=== PATIENT | male | born 1985 | race Caucasian/White ===

== ENCOUNTER 2025-11-09 21:29 | Inpatient (IN) | payer OTHER, SELFPAY ==
[2025-11-09] VITALS (8 sets, daily range): BP systolic 139–187; BP diastolic 80–85; PULSE 56–65; RESP 14–21; TEMP 36.7; O2SAT 97–100; BMI 29.9
--- NOTE | 2025-11-09 22:01 | ED_ITS ---
HPI - Nausea/Vomiting/Diarrhea <Siva Kevin MD - Last Filed: 11/12/25 15:49> General Chief complaint: Nausea/Vomiting/Diarrhea Stated complaint: N, chills, unable to drink Time Seen by Provider: 11/09/25 21:40 Source: patient and family Mode of arrival: Ambulatory History of Present Illness HPI Narrative: 40-year-old male patient with a history of beta thalassemia minor who was recently hospitalized in [place] on the 31 of October for bowel obstruction/intussusception/mass which required a bowel resection near the jejunum. 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 Since then he was recovering at home but developed nausea and no energy since the middle of the night last night. He started vomiting at around 6:00 p.m.. No diarrhea. He has had chills and felt warm but no documented fever. Has a feeling of fullness in his abdomen but no significant pain otherwise. Generalized weakness. Related Data Allergies Allergy/AdvReac Type Severity Reaction Status Date / Time No Known Drug Allergies Allergy Verified 11/09/25 21:52 Review of Systems <Siva Kevin MD - Last Filed: 11/12/25 15:49> Review of Systems ROS Unobtainable: All systems reviewed & are unremarkable except as noted in HPI and below Constitutional Constitutional: Reports as per HPI Gastrointestinal Gastrointestinal: Reports as per HPI Patient History <Siva Kevin MD - Last Filed: 11/12/25 15:49> Social History household members: spouse Smoking Status: Current some day smoker Smoking Status: Current some day smoker Exam <Siva Kevin MD - Last Filed: 11/12/25 15:49> Narrative Exam Narrative: General: Lethargic but able to answer questions appropriately and oriented.. Mild distress. Appears well nourished and well hydrated. Appears a little pale. Craniofacial: No evidence of trauma. Nontender and no swelling. Lungs: Clear to auscultation with good air movement. No wheezing, rales or rhonchi. No respiratory distress Cardiac: Regular rate and rhythm with no appreciable murmur or gallop Abdomen: Soft, nontender with mild fullness but no masses. Normal bowel sounds. No rebound or guarding Musculoskeletal: Exam of the extremities, axial spine and ribcage reveals no deformity, bony tenderness or swelling. Range of motion intact Neuro: Alert and oriented. Cranial nerves, motor, sensory and cerebellar all grossly intact. No focal deficit Skin: Warm and normal color. No rashes Psychological: Normal affect and interaction. No evidence of delusion or psychosis. Normal mood. Initial Vital Signs Initial Vital Signs: Vital Signs Pulse Rate 64 11/09/25 21:50 Pulse Oximetry 100 11/09/25 21:50 <Uriel Greenberg DO - Last Filed: 11/10/25 01:16> Initial Vital Signs Initial Vital Signs: Vital Signs Pulse Rate 64 11/09/25 21:50 Pulse Oximetry 100 11/09/25 21:50 Course <Siva Kevin MD - Last Filed: 11/12/25 15:49> Orders Ordered: Acetaminophen (Acetaminophen 325 Mg Tablet) 650 mg PO Q6H PRN PRN Reason: Pain, Mild (1-3) Last Admin: 11/12/25 02:19 Dose: 650 mg Documented By: ALEJANDRO Diazepam (Diazepam 10 Mg/2 Ml Syringe) 2 mg IV Q4HR PRN PRN Reason: Anxiety Last Admin: 11/12/25 14:26 Dose: 2 mg Documented By: NIKKI Hydromorphone HCl (Hydromorphone Hcl 0.5 Mg/0.5 Ml Syringe) 2 mg IV Q2H PRN PRN Reason: Pain, Severe (7-10) Hydromorphone HCl (Hydromorphone 1 Mg/Ml Syringe) 1 mg IV Q3H PRN PRN Reason: Pain, Moderate (4-6) Hydromorphone HCl (Hydromorphone Hcl 0.5 Mg/0.5 Ml Syringe) 0.5 mg IV Q2H PRN PRN Reason: Pain, Severe (7-10) Lactated Ringer's (Lactated Ringers) 1,000 mls @ 100 mls/hr IV CONT [facility] Last Admin: 11/12/25 14:26 Dose: 100 mls/hr Documented By: NIKKI Naloxone HCl (Naloxone 0.4 Mg/Ml Vial) 0.2 mg IV Q2MIN PRN PRN Reason: Opiate Reversal Ondansetron HCl (Ondansetron 4 Mg/2 Ml Inj) 4 mg IV Q6H [facility] Last Admin: 11/12/25 12:23 Dose: Not Given Documented By: Admin: 11/12/25 06:57 Dose: 4 mg Documented By: Admin: 11/11/25 22:39 Dose: Not Given Documented By: Admin: 11/11/25 16:45 Dose: 4 mg Documented By: Admin: 11/11/25 10:33 Dose: 4 mg Documented By: Admin: 11/11/25 04:57 Dose: Not Given Documented By: Admin: 11/10/25 22:31 Dose: Not Given Documented By: Admin: 11/10/25 16:10 Dose: 4 mg Documented By: CHARO Scopolamine (Scopolamine 1 Patch) 1 patch TOP Q72H [facility] Last Admin: 11/10/25 11:33 Dose: 1 patch Documented By: CHARO Discontinued Medications Hydromorphone HCl (Hydromorphone Hcl 0.5 Mg/0.5 Ml Syringe) 0.5 mg IV Q2H PRN PRN Reason: Pain, Severe (7-10) Sodium Chloride (Normal Saline 0.9%) 1,000 mls @ 1,000 mls/hr IV BOLUS ONE Stop: 11/09/25 23:09 Last Infusion: 11/09/25 23:35 Dose: Infused Documented By: Admin: 11/09/25 22:22 Dose: 1,000 mls/hr Documented By: OTTO Sodium Chloride (Normal Saline 0.9%) 1,000 mls @ 1,000 mls/hr IV BOLUS ONE Stop: 11/10/25 00:06 Last Infusion: 11/10/25 01:20 Dose: Infused Documented By: Admin: 11/09/25 23:43 Dose: 1,000 mls/hr Documented By: OTTO Sodium Chloride (Normal Saline 0.9%) 1,000 mls @ 125 mls/hr IV CONT [place] Last Infusion: 11/10/25 22:33 Dose: Infused Documented By: Infusion: 11/10/25 22:31 Dose: 125 mls/hr Documented By: Infusion: 11/10/25 13:21 Dose: 0 mls/hr Documented By: Admin: 11/10/25 06:18 Dose: 125 mls/hr Documented By: GLADYS Potassium Chloride 20 meq/ (Dextrose/Sodium Chloride) 1,010 mls @ 100 mls/hr IV CONT [place] Last Admin: 11/10/25 11:56 Dose: Not Given Documented By: CHARO Potassium Chloride/Dextrose/Sod Cl (Dextrose 5%-0.45%Ns W/Kcl 20meq) 1,000 mls @ 100 mls/hr IV CONT [place] Last Infusion: 11/12/25 08:17 Dose: Infused Documented By: Admin: 11/12/25 02:20 Dose: 100 mls/hr Documented By: Infusion: 11/12/25 02:20 Dose: Infused Documented By: Admin: 11/11/25 16:45 Dose: 100 mls/hr Documented By: Infusion: 11/11/25 16:45 Dose: Infused Documented By: Admin: 11/11/25 06:55 Dose: 100 mls/hr Documented By: Infusion: 11/11/25 06:55 Dose: Infused Documented By: Admin: 11/10/25 21:39 Dose: 100 mls/hr Documented By: Infusion: 11/10/25 21:39 Dose: Infused Documented By: Admin: 11/10/25 12:28 Dose: 100 mls/hr Documented By: CHARO Metoclopramide HCl (Metoclopramide 10 Mg/2 Ml Inj) 5 mg IV NOW ONE Stop: 11/09/25 23:16 Last Admin: 11/09/25 23:37 Dose: 5 mg Documented By: OTTO Morphine Sulfate (Morphine 2 Mg/Ml Inj) 2 mg IV Q4HR PRN PRN Reason: Pain, Moderate (4-6) Ondansetron HCl (Ondansetron 4 Mg/2 Ml Inj) 4 mg IV NOW ONE Stop: 11/09/25 22:11 Last Admin: 11/09/25 22:22 Dose: 4 mg Documented By: OTTO Ondansetron HCl (Ondansetron 4 Mg/2 Ml Inj) 4 mg IV NOW ONE Stop: 11/09/25 23:08 Last Admin: 11/09/25 23:41 Dose: Not Given Documented By: OTTO Ondansetron HCl (Ondansetron 4 Mg/2 Ml Inj) 4 mg IV Q4HR PRN PRN Reason: Nausea And Vomiting Last Admin: 11/10/25 10:30 Dose: 4 mg Documented By: Admin: 11/10/25 06:18 Dose: 4 mg Documented By: GLADYS Ondansetron HCl (Ondansetron 4 Mg/2 Ml Inj) 4 mg IV Q6HR [facility] Last Admin: 11/10/25 16:38 Dose: Not Given Documented By: CHARO Vital Signs Vital signs: Vital Signs - 8 hr 11/09/25 21:50 11/09/25 21:52 11/09/25 22:00 Temperature 98.0 F Pulse Rate 64 65 59 L Respiratory Rate 14 Blood Pressure 146/85 H Pulse Oximetry 100 100 99 Oxygen Delivery Method Room Air 11/09/25 22:30 11/09/25 22:36 11/09/25 22:36 Temperature Pulse Rate 56 L 61 Respiratory Rate 21 Blood Pressure 139/83 Pulse Oximetry 97 98 Oxygen Delivery Method Room Air <Uriel Greenberg DO - Last Filed: 11/10/25 01:16> Orders Ordered: Acetaminophen (Acetaminophen 325 Mg Tablet) 650 mg PO Q6H PRN PRN Reason: Pain, Mild (1-3) Last Admin: 11/12/25 02:19 Dose: 650 mg Documented By: ALEJANDRO Diazepam (Diazepam 10 Mg/2 Ml Syringe) 2 mg IV Q4HR PRN PRN Reason: Anxiety Last Admin: 11/12/25 14:26 Dose: 2 mg Documented By: NIKKI Hydromorphone HCl (Hydromorphone Hcl 0.5 Mg/0.5 Ml Syringe) 2 mg IV Q2H PRN PRN Reason: Pain, Severe (7-10) Hydromorphone HCl (Hydromorphone 1 Mg/Ml Syringe) 1 mg IV Q3H PRN PRN Reason: Pain, Moderate (4-6) Hydromorphone HCl (Hydromorphone Hcl 0.5 Mg/0.5 Ml Syringe) 0.5 mg IV Q2H PRN PRN Reason: Pain, Severe (7-10) Lactated Ringer's (Lactated Ringers) 1,000 mls @ 100 mls/hr IV CONT [facility] Last Admin: 11/12/25 14:26 Dose: 100 mls/hr Documented By: NIKKI Naloxone HCl (Naloxone 0.4 Mg/Ml Vial) 0.2 mg IV Q2MIN PRN PRN Reason: Opiate Reversal Ondansetron HCl (Ondansetron 4 Mg/2 Ml Inj) 4 mg IV Q6H [facility] Last Admin: 11/12/25 12:23 Dose: Not Given Documented By: Admin: 11/12/25 06:57 Dose: 4 mg Documented By: Admin: 11/11/25 22:39 Dose: Not Given Documented By: Admin: 11/11/25 16:45 Dose: 4 mg Documented By: Admin: 11/11/25 10:33 Dose: 4 mg Documented By: Admin: 11/11/25 04:57 Dose: Not Given Documented By: Admin: 11/10/25 22:31 Dose: Not Given Documented By: Admin: 11/10/25 16:10 Dose: 4 mg Documented By: CHARO Scopolamine (Scopolamine 1 Patch) 1 patch TOP Q72H [facility] Last Admin: 11/10/25 11:33 Dose: 1 patch Documented By: CHARO Discontinued Medications Hydromorphone HCl (Hydromorphone Hcl 0.5 Mg/0.5 Ml Syringe) 0.5 mg IV Q2H PRN PRN Reason: Pain, Severe (7-10) Sodium Chloride (Normal Saline 0.9%) 1,000 mls @ 1,000 mls/hr IV BOLUS ONE Stop: 11/09/25 23:09 Last Infusion: 11/09/25 23:35 Dose: Infused Documented By: Admin: 11/09/25 22:22 Dose: 1,000 mls/hr Documented By: OTTO Sodium Chloride (Normal Saline 0.9%) 1,000 mls @ 1,000 mls/hr IV BOLUS ONE Stop: 11/10/25 00:06 Last Infusion: 11/10/25 01:20 Dose: Infused Documented By: Admin: 11/09/25 23:43 Dose: 1,000 mls/hr Documented By: OTTO Sodium Chloride (Normal Saline 0.9%) 1,000 mls @ 125 mls/hr IV CONT [place] Last Infusion: 11/10/25 22:33 Dose: Infused Documented By: Infusion: 11/10/25 22:31 Dose: 125 mls/hr Documented By: Infusion: 11/10/25 13:21 Dose: 0 mls/hr Documented By: Admin: 11/10/25 06:18 Dose: 125 mls/hr Documented By: GLADYS Potassium Chloride 20 meq/ (Dextrose/Sodium Chloride) 1,010 mls @ 100 mls/hr IV CONT [place] Last Admin: 11/10/25 11:56 Dose: Not Given Documented By: CHARO Potassium Chloride/Dextrose/Sod Cl (Dextrose 5%-0.45%Ns W/Kcl 20meq) 1,000 mls @ 100 mls/hr IV CONT [place] Last Infusion: 11/12/25 08:17 Dose: Infused Documented By: Admin: 11/12/25 02:20 Dose: 100 mls/hr Documented By: Infusion: 11/12/25 02:20 Dose: Infused Documented By: Admin: 11/11/25 16:45 Dose: 100 mls/hr Documented By: Infusion: 11/11/25 16:45 Dose: Infused Documented By: Admin: 11/11/25 06:55 Dose: 100 mls/hr Documented By: Infusion: 11/11/25 06:55 Dose: Infused Documented By: Admin: 11/10/25 21:39 Dose: 100 mls/hr Documented By: Infusion: 11/10/25 21:39 Dose: Infused Documented By: Admin: 11/10/25 12:28 Dose: 100 mls/hr Documented By: CHARO Metoclopramide HCl (Metoclopramide 10 Mg/2 Ml Inj) 5 mg IV NOW ONE Stop: 11/09/25 23:16 Last Admin: 11/09/25 23:37 Dose: 5 mg Documented By: OTTO Morphine Sulfate (Morphine 2 Mg/Ml Inj) 2 mg IV Q4HR PRN PRN Reason: Pain, Moderate (4-6) Ondansetron HCl (Ondansetron 4 Mg/2 Ml Inj) 4 mg IV NOW ONE Stop: 11/09/25 22:11 Last Admin: 11/09/25 22:22 Dose: 4 mg Documented By: OTTO Ondansetron HCl (Ondansetron 4 Mg/2 Ml Inj) 4 mg IV NOW ONE Stop: 11/09/25 23:08 Last Admin: 11/09/25 23:41 Dose: Not Given Documented By: OTTO Ondansetron HCl (Ondansetron 4 Mg/2 Ml Inj) 4 mg IV Q4HR PRN PRN Reason: Nausea And Vomiting Last Admin: 11/10/25 10:30 Dose: 4 mg Documented By: Admin: 11/10/25 06:18 Dose: 4 mg Documented By: GLADYS Ondansetron HCl (Ondansetron 4 Mg/2 Ml Inj) 4 mg IV Q6HR [facility] Last Admin: 11/10/25 16:38 Dose: Not Given Documented By: CHARO Vital Signs Vital signs: Vital Signs - 8 hr 11/09/25 21:50 11/09/25 21:52 11/09/25 22:00 Temperature 98.0 F Pulse Rate 64 65 59 L Respiratory Rate 14 Blood Pressure 146/85 H Pulse Oximetry 100 100 99 Oxygen Delivery Method Room Air 11/09/25 22:30 11/09/25 22:36 11/09/25 22:36 Temperature Pulse Rate 56 L 61 Respiratory Rate 21 Blood Pressure 139/83 Pulse Oximetry 97 98 Oxygen Delivery Method Room Air MDM - Nausea/Vomiting/Diarrhea <Siva Kevin MD - Last Filed: 11/12/25 15:49> Lab Data 11/12/25 14:42 11/12/25 14:42 Labs: Lab Results 11/09/25 Range/Units 21:55 WBC 9.8 (4.5-11.0) X10^3/uL RBC 6.44 H (4.5-5.9) X10^6/uL Hgb 13.0 L (13.5-17.5) g/dL Hct 40.8 L (41-53) % MCV 63.4 L (80-100) fL MCH 20.2 L (26-34) PG MCHC 31.9 (30-36) % RDW 16.3 H (11.6-14.8) % Plt Count 286 (150-400) X10^3/uL Neut % (Auto) Not Reportable Lymph % (Auto) Not Reportable [place] % (Auto) Not Reportable Eos % (Auto) Not Reportable Baso % (Auto) Not Reportable Lymph # (Auto) Not Reportable [place] # (Auto) Not Reportable Baso # (Auto) Not Reportable Total Counted 100 Seg Neutrophils % 63.0 (38-70) % Lymphocytes % (Manual) 28.0 (25-45) % Monocytes % (Manual) 8.0 (2-11) % Basophils % (Manual) 1.0 (0-1) % Neutrophils # (Manual) 6174 H (5323-1228) /uL Platelet Estimate Adequate on smear RBC Morphology See below Poikilocytosis 1+ H Microcytosis 1+ H Macrocytosis 1+ H Sodium 139 (137-145) mmol/L Potassium 3.9 (3.4-5.1) mmol/L Chloride 102 (98-107) mmol/L Carbon Dioxide 20 L (22-32) mmol/L BUN 17 (9-20) mg/dL Creatinine 1.12 (0.66-1.25) mg/dL Estimated GFR > 60 (>60) mL/min BUN/Creatinine Ratio 15.2 (6-22) Glucose 131 H (70-99) mg/dL Lactate 1.7 (0.7-2.1) mmol/L Calcium 10.6 H (8.4-10.2) mg/dL Magnesium 1.9 (1.6-2.3) mg/dL Total Bilirubin 1.6 H (0.2-1.3) mg/dL AST 35 (17-59) IU/L ALT 44 (<50) IU/L Alkaline Phosphatase 84 (38-126) U/L Total Protein 8.6 H (6.3-8.2) g/dL Albumin 5.2 H (3.5-5.0) g/dL Globulin 3.4 (1.7-4.1) g/dL Albumin/Globulin Ratio 1.5 (1.0-2.8) Lipase 130 (23-300) U/L Urine RBC 1-5/hpf (0-5/HPF) Urine WBC 1-5/hpf (0-5/HPF) Ur Squamous Epith Cells 1-5 /hpf (0-5/HPF) Amorphous Sediment 2+ Urine Bacteria Few (2-10) H (None) Ur Culture Indicated? Cult not indicated Vol Urine Centrifuged 10ml (spun) Urine Dip Bedside Urine Glucose Negative Bedside Urine Bilirubin - Negative Bedside Urine Ketone + 15 Urine Specific [place] 1.010 Bedside Urine Occult Blood - Negative Bedside Urine pH 8.0 Bedside Urine Protein +/- 15 Bedside Urine Urobilinogen - Negative Bedside Urine Nitrite - Negative Bedside Urine Leukocytes - Negative Esterase MDM Narrative Medical decision making narrative: 23:00 Patient care signed out to Dr. Cota at the change of shift with lab work pending. He is here with abdominal fullness, nausea and vomiting 1 week after laparotomy for benign intestinal mass. 2300: Patient was signed out to me by Dr. Kevin, patient is a 40-year-old male with recent abdominal surgery, states he had a colon resection on 10/31/2025 at [facility] in [facility], states that this was secondary to an intussusception that was caused by mass, he states that he has sentences transition to a normal diet, states that he did go to work today, had a normal bowel movement has been having flatulence, however he states that he just feels ?distended and nauseous, he denies any true abdominal pain, he states that he has been managing his abdominal pain postoperatively with Motrin and Tylenol has not taken or used any opiates. <Uriel Greenberg, DO - Last Filed: 11/10/25 01:16> Lab Data Labs: Lab Results 11/09/25 Range/Units 21:55 WBC 9.8 (4.5-11.0) X10^3/uL RBC 6.44 H (4.5-5.9) X10^6/uL Hgb 13.0 L (13.5-17.5) g/dL Hct 40.8 L (41-53) % MCV 63.4 L (80-100) fL MCH 20.2 L (26-34) PG MCHC 31.9 (30-36) % RDW 16.3 H (11.6-14.8) % Plt Count 286 (150-400) X10^3/uL Neut % (Auto) Not Reportable Lymph % (Auto) Not Reportable [place] % (Auto) Not Reportable Eos % (Auto) Not Reportable Baso % (Auto) Not Reportable Lymph # (Auto) Not Reportable [place] # (Auto) Not Reportable Baso # (Auto) Not Reportable Total Counted 100 Seg Neutrophils % 63.0 (38-70) % Lymphocytes % (Manual) 28.0 (25-45) % Monocytes % (Manual) 8.0 (2-11) % Basophils % (Manual) 1.0 (0-1) % Neutrophils # (Manual) 6174 H (5762-0444) /uL Platelet Estimate Adequate on smear RBC Morphology See below Poikilocytosis 1+ H Microcytosis 1+ H Macrocytosis 1+ H Sodium 139 (137-145) mmol/L Potassium 3.9 (3.4-5.1) mmol/L Chloride 102 (98-107) mmol/L Carbon Dioxide 20 L (22-32) mmol/L BUN 17 (9-20) mg/dL Creatinine 1.12 (0.66-1.25) mg/dL Estimated GFR > 60 (>60) mL/min BUN/Creatinine Ratio 15.2 (6-22) Glucose 131 H (70-99) mg/dL Lactate 1.7 (0.7-2.1) mmol/L Calcium 10.6 H (8.4-10.2) mg/dL Magnesium 1.9 (1.6-2.3) mg/dL Total Bilirubin 1.6 H (0.2-1.3) mg/dL AST 35 (17-59) IU/L ALT 44 (<50) IU/L Alkaline Phosphatase 84 (38-126) U/L Total Protein 8.6 H (6.3-8.2) g/dL Albumin 5.2 H (3.5-5.0) g/dL Globulin 3.4 (1.7-4.1) g/dL Albumin/Globulin Ratio 1.5 (1.0-2.8) Lipase 130 (23-300) U/L Urine RBC 1-5/hpf (0-5/HPF) Urine WBC 1-5/hpf (0-5/HPF) Ur Squamous Epith Cells 1-5 /hpf (0-5/HPF) Amorphous Sediment 2+ Urine Bacteria Few (2-10) H (None) Ur Culture Indicated? Cult not indicated Vol Urine Centrifuged 10ml (spun) Urine Dip Bedside Urine Glucose Negative Bedside Urine Bilirubin - Negative Bedside Urine Ketone + 15 Urine Specific [place] 1.010 Bedside Urine Occult Blood - Negative Bedside Urine pH 8.0 Bedside Urine Protein +/- 15 Bedside Urine Urobilinogen - Negative Bedside Urine Nitrite - Negative Bedside Urine Leukocytes - Negative Esterase MDM Narrative Medical decision making narrative: 23:00 Patient care signed out to Dr. Cota at the change of shift with lab work pending. He is here with abdominal fullness, nausea and vomiting 1 week after laparotomy for benign intestinal mass. 2300: Patient was signed out to me by Dr. Kevin, patient is a 40-year-old male with recent abdominal surgery, states he had a colon resection on 10/31/2025 at [facility] in [facility], states that this was secondary to an intussusception that was caused by mass, he states that he has sentences transition to a normal diet, states that he did go to work today, had a normal bowel movement has been having flatulence, however he states that he just feels ?distended and nauseous, he denies any true abdominal pain, he states that he has been managing his abdominal pain postoperatively with Motrin and Tylenol has not taken or used any opiates. 2345: I was informed by nursing staff that patient was unable to tolerate p.o. contrast, we did attempt to give him anti nausea meds prior but after drinking a small amount of the p.o. contrast had episode of nonbilious nonbloody emesis. Therefore we will proceed with CT scan with IV contrast without p.o. at this point. Lab work otherwise has been unremarkable no leukocytosis lactate normal Chem panel normal. Urinalysis without signs of acute urinary tract infection, there was few bacteria but there was went to 5 squamous epithelial cells therefore most likely contaminant, patient also not having any urinary symptoms at this time therefore will defer/hold off on antibiotics at this time for a urine infection. 0104: CT scan showing small bowel obstruction with transition point to the left upper quadrant, lab work otherwise unremarkable, Had a discussion with Dr. Medrano of General surgery, agrees with the admission, agrees that at this time no need for NG tube as long as patient not actively dry heaving or vomiting, states would like x-ray abdomen in the morning, we will place this, keep patient NPO at this time The patient's management plan was discussed Dr. Medrano who agrees to admit the patient to their service and assumes care of this patient at this time. Full admission orders will be placed by the primary team. Discharge Plan Departure Patient Disposition: Admitted As Inpatient Clinical Impression: SBO (small bowel obstruction) Admit Date/Time: 11/10/25 01:05 Admit Provider: Damon Medrano
[2025-11-09] MEDS: ONDANSETRON 4 MG/2 ML INJ IV (22:22)
[2025-11-09] MEDS: SODIUM CHLORIDE 0.9% 1,000 ML 1000 ML IV ×2 (22:22→23:43)
[2025-11-09 23:03] LABS: Alanine Aminotransferase 44 IU/L (<50); Albumin 5.2 g/dL (3.5-5.0); Albumin Globulin Ratio 1.5 (1.0-2.8); Alkaline Phosphatase 84 U/L (38-126); Blood Urea Nitrogen 17 mg/dL (9-20); Calcium 10.6 mg/dL (8.4-10.2); Carbon Dioxide 20 mmol/L (22-32); Chloride 102 mmol/L (98-107); Estimated Glomerular Filt Rate > 60 mL/min (>60); Globulin 3.4 g/dL (1.7-4.1); Glucose 131 mg/dL (70-99); HEMOLYSIS < 15 (0-50); Lipase 130 U/L (23-300); Magnesium 1.9 mg/dL (1.6-2.3); Potassium 3.9 mmol/L (3.4-5.1); Sodium 139 mmol/L (137-145); Total Protein 8.6 g/dL (6.3-8.2)
[2025-11-09 23:04] LABS: Lactate (Lactic Acid) 1.7 mmol/L (0.7-2.1)
--- NOTE | 2025-11-09 23:09 | DI.CT.S_ITS ---
PROCEDURE: CT ABDOMEN PELVIS W CON INDICATIONS: Patient post colon resection secondary to intussusception TECHNIQUE: After the administration of intravenous contrast, axial sections acquired from the lung bases to the pubic symphysis. Coronal and sagittal reformats were performed. For radiation dose reduction, the following was used: automated exposure control, adjustment of mA and/or kV according to patient size. COMPARISON: None. FINDINGS: Image quality: Diagnostic. Lower Chest: No significant findings. ABDOMEN: Liver: No solid mass. Gallbladder: No radiopaque gallstones or wall thickening. Biliary ducts: No biliary dilation. Pancreas: No ductal dilation. Spleen: Spleen measures 14.5 cm in maximal CC dimension. Adrenal Glands: No adrenal nodules. Kidneys and Ureters: No hydronephrosis. No solid mass. No complex renal cystic lesion which requires follow up. Stomach and Bowel: Dilatation of the proximal small bowel measuring up to 3.8 cm with wall thickening. Suspected transition point in the left upper abdomen (), likely secondary to adhesions. Small bowel anastomosis is visualized in the left abdomen. Normal colonic caliber, without significant wall thickening. Normal appendix. Mild gastric wall thickening, which may be reactive versus secondary to gastritis. Peritoneum: Small volume pelvic free fluid. No free air. Mesenteric stranding and reactive free fluid associated with bowel obstruction in dilated bowel loops in the left upper quadrant. Ventral Wall: Postsurgical changes of the ventral abdominal wall. Abdominal Nodes: No retroperitoneal or mesenteric adenopathy by size criteria. Vessels: Aorta and inferior vena cava are normal in size. PELVIS: Pelvic Organs: Unremarkable. Bladder: No bladder wall thickening, accounting for underdistention. Pelvic Nodes: No enlarged lymph nodes. Miscellaneous: No inguinal hernias are seen. Bones: No aggressive osseous abnormality. IMPRESSION: Small bowel obstruction with transition point in the left upper quadrant, likely secondary to adhesions. Prominent wall thickening of the dilated proximal small bowel loops. Left mid abdomen bowel anastomosis is visualized. Mild gastric wall thickening, which may be reactive versus secondary to gastritis. Mild splenomegaly. Dictated by: Matteo Nixon M.D. on 11/10/2025 at 0:41 Approved by: Matteo Nixon M.D. on 11/10/2025 at 0:50
[2025-11-09 23:10] LABS: Hematocrit 40.8 % (41-53); Hemoglobin 13.0 g/dL (13.5-17.5); Mean Corpuscular HGB Conc 31.9 % (30-36); Mean Corpuscular Hemoglobin 20.2 PG (26-34); Mean Corpuscular Volume 63.4 fL (80-100); Platelet Count 286 X10^3/uL (150-400)
[2025-11-09 23:11] LABS: Add Manual Diff / Slide Review YES
[2025-11-09 23:14] LABS: Culture Indicated Urine Cult Not Indicated
[2025-11-09] MEDS: METOCLOPRAMIDE 10 MG/2 ML INJ 5 MG IV (23:37)
--- NOTE | 2025-11-09 23:44 | PC.NURSE ---
Pt had emesis episode of 1000ml bright green vomit. Dr. Greenberg notified immediatly.
[2025-11-09 23:48] LABS: Basophils Percent Manual 1.0 % (0-1); Lymphocytes Percent Manual 28.0 % (25-45); Monocytes Percent Manual 8.0 % (2-11); Neutrophils Absolute Manual 6174 /uL (3000-5900); Segmented Neutrophils Percent 63.0 % (38-70); Total Cells Counted 100
[2025-11-09 23:50] LABS: Macrocytosis 1+; Microcytosis 1+
[2025-11-09 23:51] LABS: Poikilocytosis 1+
[2025-11-10] VITALS (10 sets, daily range): BP systolic 118–174; BP diastolic 63–81; PULSE 60–78; RESP 15–18; TEMP 36.6–36.9; O2SAT 97–99; BMI 29.9
--- NOTE | 2025-11-10 | DI.RAD.S_ITS ---
PROCEDURE: XR ABDOMEN MIN 2V INDICATIONS: small bowel obstruction TECHNIQUE: 2 views of the abdomen were acquired. COMPARISON: None. FINDINGS/IMPRESSION: Paucity of air in the small bowel, a nonspecific finding. No significant stool burden. No free intraperitoneal air. Dictated by: Adilia Ocampo M.D. on 11/10/2025 at 12:37 Approved by: Adilia Ocampo M.D. on 11/10/2025 at 12:38
[2025-11-10] MEDS: ONDANSETRON 4 MG/2 ML INJ IV ×3 (06:18→16:10)
[2025-11-10] MEDS: SODIUM CHLORIDE 0.9% 1,000 ML 125 ML IV (06:18)
[2025-11-10] MEDS: SCOPOLAMINE 1 PATCH TOP (11:33)
--- NOTE | 2025-11-10 11:34 | P.HP_ITS ---
History of Present Illness History of Present Illness Date Patient Seen: 11/10/25 Chief complaint: N, chills, unable to drink Narrative: The patient is a 40-year-old gentleman, 10 days status post a exploratory laparoscopy/laparotomy, for bowel obstruction. Intraoperatively the patient has was noted to have an intussusception approximately 12 cm from the ligament of Treitz. The intussusception was reduced and the patient is noted to have a mass in the jejunum. Histopathology and the mass returns leiomyoma. Over the past 48 hours, the patient developed significant nausea and vomiting. He reportedly vomited approximately 1 L last evening in the emergency department. He describes abdominal fullness but denies any abdominal pain. He denies passing flatus but feels like his rectum is full. [facility] Social History Smoking Status: Current some day smoker Meds Home Medications and Allergies Allergies Allergy/AdvReac Type Severity Reaction Status Date / Time No Known Drug Allergies Allergy Verified 11/09/25 21:52 Review of Systems Review of Systems ROS: Yes All systems reviewed with the patient and are negative except as otherwise documented Exam Vital Signs (past 8 hours): - 11/10/25 04:15 11/10/25 08:34 Temperature 98.0 F Pulse Rate 78 67 Respiratory Rate 17 18 Blood Pressure 136/65 140/81 Pulse Oximetry 98 99 Oxygen Delivery Method Room Air Oxygen Delivery Method Room Air Narrative Exam Narrative: The patient is alert oriented and in some mild distress. Neck is supple Chest is clear to auscultation bilaterally Cardiac reveals a regular rate and rhythm Abdomen is mildly distended, soft, nontender and non tympanitic. Bowel sounds are normoactive. Extremities reveal full range of motion Neuro is grossly intact. Objective Imaging CT scan - abdomen: Radiologist's impression: ROCEDURE: CT ABDOMEN PELVIS W CON INDICATIONS: Patient post colon resection secondary to intussusception TECHNIQUE: After the administration of intravenous contrast, axial sections acquired from the lung bases to the pubic symphysis. Coronal and sagittal reformats were performed. For radiation dose reduction, the following was used: automated exposure control, adjustment of mA and/or kV according to patient size. COMPARISON: None. FINDINGS: Image quality: Diagnostic. Lower Chest: No significant findings. ABDOMEN: Liver: No solid mass. Gallbladder: No radiopaque gallstones or wall thickening. Biliary ducts: No biliary dilation. Pancreas: No ductal dilation. Spleen: Spleen measures 14.5 cm in maximal CC dimension. Adrenal Glands: No adrenal nodules. Kidneys and Ureters: No hydronephrosis. No solid mass. No complex renal cystic lesion which requires follow up. Stomach and Bowel: Dilatation of the proximal small bowel measuring up to 3.8 cm with wall thickening. Suspected transition point in the left upper abdomen (), likely secondary to adhesions. Small bowel anastomosis is visualized in the left abdomen. Normal colonic caliber, without significant wall thickening. Normal appendix. Mild gastric wall thickening, which may be reactive versus secondary to gastritis. Peritoneum: Small volume pelvic free fluid. No free air. Mesenteric stranding and reactive free fluid associated with bowel obstruction in dilated bowel loops in the left upper quadrant. Ventral Wall: Postsurgical changes of the ventral abdominal wall. Abdominal Nodes: No retroperitoneal or mesenteric adenopathy by size criteria. Vessels: Aorta and inferior vena cava are normal in size. PELVIS: Pelvic Organs: Unremarkable. Bladder: No bladder wall thickening, accounting for underdistention. Pelvic Nodes: No enlarged lymph nodes. Miscellaneous: No inguinal hernias are seen. Bones: No aggressive osseous abnormality. IMPRESSION: Small bowel obstruction with transition point in the left upper quadrant, likely secondary to adhesions. Prominent wall thickening of the dilated proximal small bowel loops. Left mid abdomen bowel anastomosis is visualized. Mild gastric wall thickening, which may be reactive versus secondary to gastritis. Mild splenomegaly. Dictated by: Matteo Nixon M.D. on 11/10/2025 at 0:41 Approved by: Matteo Nixon M.D. on 11/10/2025 at 0:50 Labs 11/09/25 21:55 11/09/25 21:55 Labs: Laboratory Results - last 24 hr 11/09/25 21:55 WBC 9.8 RBC 6.44 H Hgb 13.0 L Hct 40.8 L MCV 63.4 L MCH 20.2 L MCHC 31.9 RDW 16.3 H Plt Count 286 Neut % (Auto) Not Reportable Lymph % (Auto) Not Reportable [place] % (Auto) Not Reportable Eos % (Auto) Not Reportable Baso % (Auto) Not Reportable Lymph # (Auto) Not Reportable [place] # (Auto) Not Reportable Baso # (Auto) Not Reportable Total Counted 100 Seg Neutrophils % 63.0 Lymphocytes % (Manual) 28.0 Monocytes % (Manual) 8.0 Basophils % (Manual) 1.0 Neutrophils # (Manual) 6174 H Platelet Estimate Adequate on smear RBC Morphology See below Poikilocytosis 1+ H Microcytosis 1+ H Macrocytosis 1+ H Sodium 139 Potassium 3.9 Chloride 102 Carbon Dioxide 20 L BUN 17 Creatinine 1.12 Estimated GFR > 60 BUN/Creatinine Ratio 15.2 Glucose 131 H Lactate 1.7 Calcium 10.6 H Magnesium 1.9 Total Bilirubin 1.6 H AST 35 ALT 44 Alkaline Phosphatase 84 Total Protein 8.6 H Albumin 5.2 H Globulin 3.4 Albumin/Globulin Ratio 1.5 Lipase 130 Urine RBC 1-5/hpf Urine WBC 1-5/hpf Ur Squamous Epith Cells 1-5 /hpf Amorphous Sediment 2+ Urine Bacteria Few (2-10) H Ur Culture Indicated? Cult not indicated Vol Urine Centrifuged 10ml (spun) Assessment & Plan Assessment and plan (1) SBO (small bowel obstruction): Status: Acute (2) Leiomyoma of small intestine: Status: Acute Plan We will admit for IV hydration and NPO status. We will perform serial abdominal examinations as well as serial abdominal series. The Zofran appears to be only marginally working and we will start him on a scopolamine patch. I am considering a Gastrografin challenge if he can hold down the contrast. Time-Based Coding :: [TOTAL MINUTES] spent with patient and on the chart (including review of chart, obtaining history, exam, reviewing outside data, placing orders, documenting exam and treatment plan, and counseling patient) on [DATE]. PROFEE Fast Food Attendant Document charge(s): Yes
[2025-11-10] MEDS: DEXTROSE 5%-0.45NS W/KCL 20MEQ 1,000 ML 100 MEQ IV ×2 (12:28→21:39)
[2025-11-10 13:20] LABS: HEMOLYSIS < 15 (0-50)
[2025-11-10 13:24] LABS: Carbon Dioxide 21 mmol/L (22-32); Chloride 106 mmol/L (98-107); Potassium 4.1 mmol/L (3.4-5.1); Sodium 139 mmol/L (137-145)
[2025-11-10 13:30] LABS: Blood Urea Nitrogen 16 mg/dL (9-20); Calcium 9.0 mg/dL (8.4-10.2); Estimated Glomerular Filt Rate > 60 mL/min (>60)
[2025-11-10 16:37] LABS: Glucose 129 mg/dL (70-99)
[2025-11-11 05:00] VITALS: BP 119/69; PULSE 59; RESP 16; TEMP 37; O2SAT 99
[2025-11-11] MEDS: DEXTROSE 5%-0.45NS W/KCL 20MEQ 1,000 ML 100 MEQ IV ×2 (06:55→16:45)
[2025-11-11 08:42] LABS: Hematocrit 37.2 % (41-53); Hemoglobin 11.5 g/dL (13.5-17.5); Mean Corpuscular HGB Conc 31.0 % (30-36); Mean Corpuscular Hemoglobin 19.8 PG (26-34); Mean Corpuscular Volume 63.7 fL (80-100); Platelet Count 226 X10^3/uL (150-400)
[2025-11-11 08:53] LABS: Alanine Aminotransferase 37 IU/L (<50); Albumin 4.4 g/dL (3.5-5.0); Albumin Globulin Ratio 1.6 (1.0-2.8); Alkaline Phosphatase 69 U/L (38-126); Blood Urea Nitrogen 13 mg/dL (9-20); Calcium 9.5 mg/dL (8.4-10.2); Carbon Dioxide 22 mmol/L (22-32); Chloride 105 mmol/L (98-107); Estimated Glomerular Filt Rate > 60 mL/min (>60); Globulin 2.7 g/dL (1.7-4.1); Glucose 106 mg/dL (70-99); HEMOLYSIS 16 (0-50); Potassium 4.2 mmol/L (3.4-5.1); Sodium 139 mmol/L (137-145); Total Protein 7.1 g/dL (6.3-8.2)
--- NOTE | 2025-11-11 10:30 | P.PN_ITS ---
Subjective Subjective Date Patient Seen: 11/11/25 Interval history: Patient states the nausea is vastly improved. He denies any abdominal pain. He did pass some flatus. Exam Vital Signs (past 8 hours): - 11/11/25 05:00 Temperature 98.6 F Pulse Rate 59 L Respiratory Rate 16 Blood Pressure 119/69 Pulse Oximetry 99 Oxygen Flow Rate 0 Oxygen Delivery Method Room Air Oxygen Flow Rate 0 Narrative Exam Narrative: Lungs clear to auscultation bilaterally Cardiac reveals a regular rate and rhythm Abdomen is soft, nontender, with active bowel sounds. Incision is clean without induration, erythema, discharge, or ecchymosis. Objective Labs 11/11/25 08:05 11/11/25 08:05 Labs: Laboratory Results - last 24 hr 11/10/25 11/11/25 13:00 08:05 WBC 7.2 RBC 5.84 Hgb 11.5 L Hct 37.2 L MCV 63.7 L MCH 19.8 L MCHC 31.0 RDW 16.3 H Plt Count 226 Neut % (Auto) Not Reportable Lymph % (Auto) Not Reportable [place] % (Auto) Not Reportable Eos % (Auto) Not Reportable Baso % (Auto) Not Reportable Lymph # (Auto) Not Reportable [place] # (Auto) Not Reportable Baso # (Auto) Not Reportable Sodium 139 139 Potassium 4.1 4.2 Chloride 106 105 Carbon Dioxide 21 L 22 BUN 16 13 Creatinine 1.03 0.93 Estimated GFR > 60 > 60 BUN/Creatinine Ratio 15.5 14.0 Glucose 129 H 106 H Calcium 9.0 9.5 Total Bilirubin 1.0 AST 32 ALT 37 Alkaline Phosphatase 69 Total Protein 7.1 Albumin 4.4 Globulin 2.7 Albumin/Globulin Ratio 1.6 [facility] Social History household members: spouse Smoking Status: Current some day smoker Assessment & Plan Assessment and plan (1) Leiomyoma of small intestine: Status: Acute (2) SBO (small bowel obstruction): Status: Acute Plan The patient is nausea has improved he is hungry. He denies any abdominal pain and has passed some flatus. We will try him on some clear liquids. Time-Based Coding :: [TOTAL MINUTES] spent with patient and on the chart (including review of chart, obtaining history, exam, reviewing outside data, placing orders, documenting exam and treatment plan, and counseling patient) on [DATE]. PROFEE Melt Room Operator Document charge(s): Yes
[2025-11-11] MEDS: ONDANSETRON 4 MG/2 ML INJ IV ×2 (10:33→16:45)
--- NOTE | 2025-11-11 11:24 | DIET.CONS ---
Dietary Consultation Note Admission Date: 11/10/2025 01:05 Assessment: 40 y M admitted for leiomyoma of small intestine/SBO. Dietitian screened for low MNA score. Met with pt in room. Report surgery on 10/31, diet was advanced gradually and he was able to tolerate general diet upon d/c home. Was eating but less than normal then had large sandwich and developed N/V for 48 hours before coming to hospital. Diet is advancing today. Reports 10 lb weight loss since surgery. NFPE with no significant findings in temples, clavicle area and buccal and orbital fat pads. Ht: 175.26 cm Wt: 92.079 kg BMI: 29.9 UBW: 210# (95.45 kg) -3.5% weight loss in 2 weeks (non-severe) Last BM: 11/09/25 (11/10/25 06:43) MNA: 7 Jamey Score: 21 Diet: 11/10/25 11:07 NPO Diet Diet Modifications: NPO Type: NPO except for Ice Chips 11/11/25 Lunch Clear Liquid Diet Diet Modifications: Labs: RBC 5.84 X10^6/uL (4.5-5.9) 11/11/25 08:05 Hgb 11.5 g/dL (13.5-17.5) L 11/11/25 08:05 Hct 37.2 % (41-53) L 11/11/25 08:05 Creatinine 0.93 mg/dL (0.66-1.25) 11/11/25 08:05 Lactate 1.7 mmol/L (0.7-2.1) 11/09/25 21:55 Nutrition Diagnosis: Unintentional weight loss r/t altercations in the GI tract resulting in low PO intakes as evidenced by 3.5% (10#) weight loss in 2 weeks, non-severe Interventions: When able to tolerate a regular diet, encouraged small freq meals and protein based options. Discussed protein shake, ensure max available as needed to prevent further weight loss dependent on PO intakes EER: 2200 kcals (MSJx1.2) 80-90 g protein (1-1.2 g/kg adjusted IBW per recent GI surgery) Monitoring/Evaluations: PO intakes, diet tolerance and advancement Electronically Signed by: Lolis Sanchez 11/11/25 11:24 Clinical Dietitian [address] [id number]
[2025-11-11 11:55] VITALS: BP 128/83; PULSE 60; RESP 16; TEMP 36.8
[2025-11-11 12:22] LABS: Anisocytosis 1+; Microcytosis 1+; Poikilocytosis 1+
[2025-11-11 13:40] LABS: Add Manual Diff / Slide Review NO; Neutrophils Absolute Manual 0 /uL (3000-5900)
[2025-11-11 13:41] LABS: Lymphocytes Absolute Auto 2000 /uL (1100-4500)
[2025-11-11 19:00] VITALS: BP 114/68; PULSE 57; RESP 15; TEMP 36.6; O2SAT 98
[2025-11-12 01:30] VITALS: BP 115/65; PULSE 59; RESP 16; TEMP 36.1; O2SAT 97
[2025-11-12] MEDS: ACETAMINOPHEN 325 MG TABLET 650 MG PO (02:19)
[2025-11-12] MEDS: DEXTROSE 5%-0.45NS W/KCL 20MEQ 1,000 ML 100 MEQ IV (02:20)
[2025-11-12] MEDS: ONDANSETRON 4 MG/2 ML INJ IV (06:57)
--- NOTE | 2025-11-12 07:00 | DI.CT.S_ITS ---
PROCEDURE: CT KIDNEY URETER BLADDER (KUB) INDICATIONS: pain TECHNIQUE: Axial sections were acquired from the lung bases to the pubic symphysis. Coronal and sagittal reformats were performed. For radiation dose reduction, the following was used: automated exposure control, adjustment of mA and/or kV according to patient size. COMPARISON: [facility], CT, CT ABDOMEN PELVIS W CON, 11/09/2025, 23:11. FINDINGS: Image quality: Diagnostic. Lower Chest: No significant findings. URINARY: Right Kidney: Faint punctate nonobstructing stones are seen in upper to midpole of right kidney. No hydronephrosis. Right Ureter: No hydroureter. Left Kidney: Faint punctate nonobstructing stones also seen scattered in left kidney without hydronephrosis. Left Ureter: No hydroureter. Bladder: Decompressed. No gross bladder wall abnormality is seen. No stones. ABDOMEN: Liver: No contour-deforming solid mass. Gallbladder: No radiopaque gallstones or wall thickening. Biliary ducts: No biliary dilation. Pancreas: No ductal dilation. Spleen: Borderline splenomegaly, no discrete splenic lesions. This is unchanged from previous study. Adrenal Glands: No adrenal nodules. Stomach and Bowel: Again noted is significant fluid distension of stomach and proximal small bowel loops with zone of transition involving left upper quadrant at the level adjacent to the surgical anastomosis with dilated small-bowel loops measures up to 4.3 cm on the current study compared to 4.6 cm on previous study at the same level. Mild proximal small bowel wall thickening is also noted. More distal small bowel loops and colon loops are decompressed. Questionable colonic wall thickening. Sigmoid diverticulosis without CT evidence of acute diverticulitis. No abscess collection. Peritoneum: No abnormal intraperitoneal fluid. No free air. Ventral Wall: No hernia. Abdominal Nodes: No enlarged retroperitoneal or mesenteric lymph nodes. Vessels: Aorta and inferior vena cava are normal in size. PELVIS: Pelvic Organs: Unremarkable. Pelvic Nodes: Unremarkable. Miscellaneous: No inguinal hernias are seen. Small amount of free fluid in lower pelvis which may be physiologic . Bones: No aggressive appearing bony lesions. IMPRESSION: 1. No obstructing renal stones or hydronephrosis. Faint punctate bilateral nonobstructing stones. No hydroureter. Decompressed urinary bladder. 2. Finding is consistent with small bowel obstruction with transition point in left upper quadrant near the surgical anastomosis possibly a related to adhesion. 3. Upstream small bowel wall thickening concerning for infectious inflammatory enteritis. Mild diffuse colonic wall thickening suggestive of colitis. No abscess collection. No peritoneal free air. Physiologic amount of free fluid in lower pelvis. 4. Other findings are unchanged from previous study. Dictated by: Jesus Neal M.D. on 11/12/2025 at 8:20 Approved by: Jesus Neal M.D. on 11/12/2025 at 8:28
--- NOTE | 2025-11-12 07:00 | DI.RAD.S_ITS ---
PROCEDURE: XR CHEST 2V INDICATIONS: pain TECHNIQUE: 2 views of the chest were acquired. COMPARISON: None. FINDINGS: Surgical changes and devices: None. Lungs and pleura: Lungs are clear. No pleural effusions or pneumothorax. Mediastinum: Mediastinal contours are normal. Heart size is normal. Bones and chest wall: No suspicious bony abnormalities. Soft tissues appear unremarkable. IMPRESSION: No acute cardiopulmonary pathology. Dictated by: Jesus Neal M.D. on 11/12/2025 at 8:20 Approved by: Jesus Neal M.D. on 11/12/2025 at 8:20
[2025-11-12 08:00] VITALS: BP 127/86; PULSE 61; RESP 15; TEMP 36.3; O2SAT 100
--- NOTE | 2025-11-12 14:03 | DI.RAD.S_ITS ---
PROCEDURE: XR CHEST 1V INDICATIONS: NG tube placement TECHNIQUE: One view of the chest was acquired. COMPARISON: [facility], CR, XR CHEST 2V, 11/12/2025, 7:44. FINDINGS: Surgical changes and devices: NG tube tip is below the left hemidiaphragm just beyond the GE junction. Lungs and pleura: Lungs are clear. No pleural effusions or pneumothorax. Mediastinum: Mediastinal contours appear normal. Heart size is normal. Bones and chest wall: No suspicious bony lesions. Overlying soft tissues appear unremarkable. IMPRESSION: NG tube tip is in proximal stomach lumen and can be advanced by 10 cm. Dictated by: Jesus Neal M.D. on 11/12/2025 at 15:14 Approved by: Jesus Neal M.D. on 11/12/2025 at 15:22
--- NOTE | 2025-11-12 14:05 | CM.DANOTE ---
Initial DCP Assessment Visit Note Reviewed EMR and team rounds for pt's medical status and updates. Went to meet with pt f/f to introduce self and role, however he was taking a shower at the time of this visit. Pt resides independently with his and children in their own home in [place]. His will transport him home once he's been medically cleared for d/c. No CM d/c assistance or resource needs are identified at this time. Payor: Juan Coppola PCP: [facility] Pt is a 40 year-old M with a recent medical hx of being hospitalized in [place] on 10/31 for a small bowel obstruction. He had a colon resection, and the mass ended up being a benign leomyoma. He has since been having a difficult recovery at home, and presented to the ED due to sudden onset nausea/vomiting and abdominal distention. CT scan did show another SBO. Surgery was consulted, and the plan was made to admit him as NPO w/no surgery, conservative measures, and advancement of diet as tolerated. Pt is now feeling much improved, and is advancing from clears to solids today. DCP will continue to monitor for any further DCP needs prior to his d/c. Discharge Planning/Care Management Advanced directive, confirm from FAMILY Start: 11/10/25 16:36 Freq: Q24H Status: Active Protocol: Document 11/10/25 16:36 JJ (Rec: 11/10/25 16:36 J [id number]) Advance Directive, confirm on record Time 16:36 Person contacted pt Copy received No Document 11/11/25 16:36 JJ (Rec: 11/11/25 18:25 J [id number]) Advance Directive, confirm on record Time 16:36 Person contacted pt Copy received No Time 18:25 Person contacted pt Copy received No CM Discharge Assessment Start: 11/10/25 06:43 Freq: Status: Active Protocol: Document 11/12/25 14:03 DPL (Rec: 11/12/25 14:05 DPL [id number]) Discharge Planning Assessment Assigned Discharge LINO Morillo Pipe Insulator Provider [facility] Insurance Juan Advance Directives? No Advance Directives No on File History Provided By Medical Record Has Patient been No admitted in last 30 days? Prior Living House Arrangements Household Members spouse Type of Drives own vehicle transporation used prior to admit Independent with ADL Yes 's Is patient alert and Yes oriented? Caregiver for Yes: family Another Comment N/A Comment N/A Barriers to No Discharge Discharge Plan Home Referrals Initiated None needed Whiteboard Updated Yes in Patient Room with name and ext. # of Sight Mounter Review Status In Process Please Provide Date 11/12/25 Initial DC Assessment Was Performed
[2025-11-12] MEDS: LACTATED RINGERS 1,000 ML 100 ML IV (14:26)
[2025-11-12 14:30] VITALS: BP 130/69; PULSE 63; RESP 20; TEMP 36.6; O2SAT 100
--- NOTE | 2025-11-12 14:35 | PM.PN.IH.1 ---
Subjective Subjective Date Patient Seen: 11/12/25 Time Patient Seen: 14:35 Interval history: Increased nausea and vomiting today with minimal flatus. Exam Vital Signs (past 8 hours): - 11/12/25 08:00 11/12/25 14:30 Temperature 97.4 F L 97.9 F Pulse Rate 61 63 Respiratory Rate 15 20 Blood Pressure 127/86 130/69 Pulse Oximetry 100 100 Oxygen Flow Rate 0 0 Oxygen Delivery Method Room Air Oxygen Flow Rate 0 Narrative Exam Narrative: Abdomen is soft, minimally tender Objective Labs 11/11/25 08:05 11/11/25 08:05 [facility] Social History household members: spouse Smoking Status: Current some day smoker Assessment & Plan Assessment and plan (1) SBO (small bowel obstruction): Status: Acute Plan NG tube, IV fluids and labs If no progress by tomorrow we will consider Gastrografin challenge versus operative intervention. Time-Based Coding :: [TOTAL MINUTES] spent with patient and on the chart (including review of chart, obtaining history, exam, reviewing outside data, placing orders, documenting exam and treatment plan, and counseling patient) on [DATE]. PROFEE Kick Plate Installer Document charge(s): No
[2025-11-12 14:50] LABS: Add Manual Diff / Slide Review NO; Hematocrit 37.0 % (41-53); Hemoglobin 11.8 g/dL (13.5-17.5); Lymphocytes Absolute Auto 1700 /uL (1100-4500); Mean Corpuscular HGB Conc 32.0 % (30-36); Mean Corpuscular Hemoglobin 20.0 PG (26-34); Mean Corpuscular Volume 62.5 fL (80-100); Platelet Count 226 X10^3/uL (150-400)
[2025-11-12 15:13] LABS: Blood Urea Nitrogen 11 mg/dL (9-20); Calcium 9.7 mg/dL (8.4-10.2); Carbon Dioxide 18 mmol/L (22-32); Chloride 105 mmol/L (98-107); Estimated Glomerular Filt Rate > 60 mL/min (>60); Glucose 101 mg/dL (70-99); HEMOLYSIS < 15 (0-50); Potassium 3.6 mmol/L (3.4-5.1); Sodium 137 mmol/L (137-145)
[2025-11-12 15:14] LABS: Magnesium 1.6 mg/dL (1.6-2.3)
[2025-11-12] MEDS: MAGNESIUM SULFATE 2 GM/50 ML PIGGYBACK IV (16:21)
[2025-11-12 16:57] LABS: Microcytosis 1+; Target Cells 1+
--- NOTE | 2025-11-12 19:32 | PC.NURSE ---
Per chest xray after NGT insertion, NGT can be advanced 10 more cm, but pt refuses for staff to move the NGT. This nurse called Dr. Sterling to clarify that it is ok to leave NGT where it is, and as long as there is continued output he is fine with the placement. The color of NGT output changed from bright green to dark red around 184, Dr Sterling notified and not concerned at this time.
[2025-11-12 21:00] VITALS: BP 132/80; PULSE 58; RESP 16; TEMP 36.8; O2SAT 97
--- NOTE | 2025-11-13 | DI.RAD.S_ITS ---
PROCEDURE: XR GASTROGRAFIN CHALLENGE COMPARISON: None. INDICATIONS: sbo FINDINGS: Gastrografin trial inch test shows oral contrast in stomach, small bowel and colon loops extending to sigmoid colon and rectum. No contrast extravasation or gross pneumoperitoneum. IMPRESSION: No evidence of bowel obstruction. No contrast extravasation or pneumoperitoneum. Dictated by: Jesus Neal M.D. on 11/14/2025 at 12:40 Approved by: Jesus Neal M.D. on 11/14/2025 at 12:43
[2025-11-13] MEDS: LACTATED RINGERS 1,000 ML 100 ML IV (00:52)
[2025-11-13] MEDS: ONDANSETRON 4 MG/2 ML INJ IV (05:24)
[2025-11-13 08:00] VITALS: BP 146/90; PULSE 68; RESP 19; TEMP 36.4; O2SAT 99
--- NOTE | 2025-11-13 08:56 | PM.PN.IH.1 ---
Subjective Subjective Date Patient Seen: 11/13/25 Time Patient Seen: 08:57 Interval history: Over 2 L out of the NG tube since it was placed yesterday afternoon. No bowel movements. He thinks he may have had a small amount of flatus this morning. A Gastrografin challenge was initiated this morning. Exam Vital Signs (past 8 hours): - 11/13/25 08:00 Temperature 97.6 F Pulse Rate 68 Respiratory Rate 19 Blood Pressure 146/90 H Pulse Oximetry 99 Oxygen Flow Rate 0 Oxygen Delivery Method Room Air Oxygen Flow Rate 0 Const General: healthy appearing Objective Labs 11/12/25 14:42 11/12/25 14:42 Labs: Laboratory Results - last 24 hr 11/12/25 14:42 WBC 8.8 RBC 5.92 H Hgb 11.8 L Hct 37.0 L MCV 62.5 L MCH 20.0 L MCHC 32.0 RDW 15.9 H Plt Count 226 Neut % (Auto) 73.0 Lymph % (Auto) 18.8 L [place] % (Auto) 7.5 Eos % (Auto) 0.2 L Baso % (Auto) 0.5 Neut # (Auto) 6400 Lymph # (Auto) 1700 [place] # (Auto) 700 Eos # (Auto) 0 Baso # (Auto) 0 RBC Morphology See below Microcytosis 1+ H Target Cells 1+ H Sodium 137 Potassium 3.6 Chloride 105 Carbon Dioxide 18 L BUN 11 Creatinine 0.92 Estimated GFR > 60 BUN/Creatinine Ratio 12.0 Glucose 101 H Calcium 9.7 Magnesium 1.6 PFSH Social History household members: spouse Smoking Status: Current some day smoker Assessment & Plan Assessment and plan (1) SBO (small bowel obstruction): Status: Acute Plan Hopefully the Gastrografin challenge will resolve the bowel obstruction. If not we will need to proceed to the operating room for an exploratory laparotomy. Time-Based Coding :: [TOTAL MINUTES] spent with patient and on the chart (including review of chart, obtaining history, exam, reviewing outside data, placing orders, documenting exam and treatment plan, and counseling patient) on [DATE]. PROFEE Director Workforce Management Document charge(s): No
[2025-11-13] MEDS: SCOPOLAMINE 1 PATCH TOP (10:23)
[2025-11-13] MEDS: PHENYLEPH/MINERAL OIL/PETROLAT 57 GM OINT 1 APPLIC PR (10:55)
[2025-11-13] MEDS: IBUPROFEN 600 MG TABLET PO (15:57)
[2025-11-13] MEDS: INFLUENZA VACCINE 0.5 ML SYRINGE IM (16:26)
[2025-11-13 16:50] VITALS: BP 146/84; PULSE 71; RESP 14; TEMP 36.5; O2SAT 100
--- NOTE | 2025-11-13 17:49 | PC.NURSE ---
Day shift: Paperwork signed and all questions answered. Pt has all personal belongings. Spouse in room for d/c teachings. LEft unit at approx 1745 and was walked out by this video games storywriter. He tolerated well. Spouse is driving him home and he plans to take a sitz bath to help with his hemorrhoid flare up.
--- NOTE | 2026-01-06 17:09 | P.DS_ITS ---
History of Present Illness History of Present Illness Chief complaint: N, chills, unable to drink Discharge Providers Provider Date of admission: 11/10/25 01:05 Discharge Date: 11/13/25 Discharge provider: Carson Sterling MD Summary Hospital Course Discharge Diagnosis: Small bowel obstruction resolved Hospital Course: The patient was admitted for a small-bowel obstruction. He was given a Gastrografin challenge in the small bowel obstruction eventually resolved. Exam Vital Signs (past 8 hours): Oxygen Delivery Method Room Air Oxygen Flow Rate 0 Objective Labs 11/12/25 14:42 11/12/25 14:42 COUNTS INCLUDE 234 BEDS AT THE [facility] Social History household members: spouse Smoking Status: Current some day smoker Discharge Plan Discharge Plan Patient Disposition: Home Discharge orders & Medications Prescriptions: No Action Preparation H (Brittnee Espitia) 20 % pads, medicated topical Visit Report/Discharge Packet Instructions: Hemorrhoids (Alternative Therapy), Hemorrhoids, DI for Small Bowel Obstruction, DI for Hemorrhoids, DI for Prescription Opioid Use Stand Alone Forms: [employer], Patient Portal/API, Stroke Signs & Symptoms, Influenza Vaccine Info, Notice of Privacy Practices, Inpatient vs Outpatient, Pneumococcal Vaccine Info, Pt. Rights & Responsibilities [facility] PROFEE Charge Codes Discharge inpatient/observation: [id number]
== END 2025-11-13 17:51 | disposition home or self-care (01) | DRG 390 ==
LOC: ED 23:01 → AC 11-10 01:06
PROVIDERS: Emergency Medicine; Surgery; Admitting Provider Surgery Trauma Surgery; Emergency Provider Student in an Organized Health Care Education/Training Program; Referring Provider Student in an Organized Health Care Education/Training Program; Visit Provider Surgery Trauma Surgery
DX: K56.609 Unspecified intestinal obstruction, unspecified as to partial versus complete obstruction (principal); D13.39 Benign neoplasm of other parts of small intestine; F17.200 Nicotine dependence, unspecified, uncomplicated
CPT/HCPCS: 36415; 71045; 71046; 74018; 74019; 74176; 74177; 80048; 80053; 81003; 81015; 83605; 83690; 83735; 85007; 85025; 90471; 90656; 96361; 96374; 96375; 99222; 99231; 99284; J1171; J2405; J2765; J3360; J3475; J7030; J7120; Q2038; Q9967